=== PATIENT | female | born 1990 | race Caucasian/White ===

== ENCOUNTER 2023-03-30 11:21 | Emergency (ER) | payer OTHER ==
--- NOTE | 2023-03-30 11:28 | ERPHSYRPT ---
- History of Present Illness Time Seen by Provider: 03/30/23 11:28 Source: patient Exam Limitations: no limitations Physician History: This is a 32-year-old right-handed white female who was cutting and trimming her mother's trees for several hours yesterday afternoon and evening. This morning when she woke up she was having significant left Steer neck and left posterior shoulder pain. She felt that it was muscular. She did not suffer any acute traumatic injury or fall. She has no chest pain. She denies shortness of breath. Occurred: this morning Method of Injury: other (Repetitive movement of trimming trees yesterday) Quality: aching Severity of Pain-Max: mild (To moderate) Severity of Pain-Current: mild (To moderate with movement) Extremities Pain Location: shoulder: left (Posterior as well as posterior neck.) Modifying Factors: Improves With: movement Associated Symptoms: neck pain (Posterior neck and posterior shoulder in the distribution of the trapezius muscle) Allergies/Adverse Reactions: No Known Drug Allergies Allergy (Verified 03/30/23 11:46) Travel Risk - International Travel Have you traveled outside of the country in past 3 weeks: No - Coronavirus Screening Are you exhibiting any of the following symptoms?: No Close contact with a COVID-19 positive Pt in past 14-21 Days: No - Review of Systems Constitutional: No Symptoms Eyes: No Symptoms Ears, Nose, & Throat: No Symptoms Respiratory: No Symptoms Cardiac: No Symptoms Abdominal/Gastrointestinal: No Symptoms Genitourinary Symptoms: No Symptoms Musculoskeletal: No Symptoms, Neck Pain (Posterior neck in the distribution of the trapezius muscle), Other (Posterior left shoulder in the distribution of the trapezius muscle) Skin: No Symptoms Neurological: No Symptoms Psychological: No Symptoms Endocrine: No Symptoms Hematologic/Lymphatic: No Symptoms Immunological/Allergic: No Symptoms All Other Systems: Reviewed and Negative - Past Medical History Pertinent Past Medical History: No - Past Surgical History Past Surgical History: No - Nursing Vital Signs Nursing Vital Signs: Initial Vital Signs Temperature 97.0 F 03/30/23 11:42 Pulse Rate 79 03/30/23 11:42 Respiratory Rate 20 03/30/23 11:42 Blood Pressure 110/69 03/30/23 11:42 O2 Sat by Pulse Oximetry 100 03/30/23 11:42 Pain Scale Pain Intensity 2 - Physical Exam General Appearance: no apparent distress, alert, anxiety Eyes, Ears, Nose, Throat Exam: normal ENT inspection, moist mucous membranes Neck Exam: tenderness lateral (Left posterior muscle tenderness in the distribution of the left trapezius muscle) Cardiovascular/Respiratory Exam: chest non-tender, normal breath sounds, regular rate/rhythm, heart sounds normal, no respiratory distress Abdominal Exam: non-tender Back Exam: normal inspection, normal range of motion, No CVA tenderness, No vertebral tenderness Shoulder Exam: normal inspection, no evidence of injury, normal ROM, soft tissue tenderness (Left posterior shoulder in the distribution of the left trapezius muscle) Elbow/Forearm Exam: normal inspection, non-tender, no evidence of injury, normal ROM Wrist Exam: normal inspection, non-tender, no evidence of injury, normal ROM Hand Exam: normal inspection, non-tender, no evidence of injury, normal ROM Neuro/Tendon Exam: normal sensation, normal motor functions, normal tendon functions, responds to pain, no evidence tendon injury Mental Status Exam: alert, oriented x 3, cooperative Skin Exam: normal color, warm, dry SpO2 Interpretation: normal O2 Delivery: Room Air - Course Nursing assessment & vital signs reviewed: Yes - Progress Progress: unchanged Progress Note: 03/30/23 12:15 This patient's medical issue is 1 of low complexity. Level complexity in the work-up performed is based on review of the patient's past medical history, review of the patient's medication list, review of the patient's drug allergy list, history of present illness and physical findings on examination. This patient's work-up does not require laboratory data. Patient refuses x-rays/radiographic studies at this time. I offered her x-rays of the cervical spine and left shoulder. She did not suffer a fall or any acute traumatic injury and therefore refuses x-rays. I also offered her injections of Solu- Medrol and orphenadrine intramuscularly and she refuses that. She does except prescriptions to be sent to her pharmacy for prednisone and orphenadrine orally. Counseled pt/family regarding: diagnosis, need for follow-up Medical Desision Making - Diagnostic Testing Diagnostic test were ordered, analyzed, and reviewed by me: No - Risk of complications The pt has a mod risk of morbidity or mortality based on: Need for prescription drug management - Departure Departure Disposition: Home Clinical Impression: Musculoskeletal pain Condition: Stable Critical Care Time: No Referrals: SUSAN TAYLOR [Primary Care Provider] - Follow up/PCP as directed Additional Instructions: Take your medication as prescribed. May alternate ice and heat for the next 48 hours. Call your primary care provider today, to make arrangements for follow- up appointment and further evaluation and management. Prescriptions: Prednisone 10 mg [Deltasone 10 mg] 10 mg PO TID #12 tablet Orphenadrine Citrate 100 mg [Norflex 100 MG Tablet] 100 mg PO BID #10 tab
[2023-03-30 11:46] VITALS: RESP 20
[2023-03-30 12:29] VITALS: BP 108/72; PULSE 80; TEMP 97.2; O2SAT 98
== END 2023-03-30 12:38 | disposition home or self-care (01) ==
LOC: ED 11:21
DX: M25.512 Pain in left shoulder (principal); M54.2 Cervicalgia; Z79.52 Long term (current) use of systemic steroids
CPT/HCPCS: 99281

== ENCOUNTER 2023-06-17 18:20 | Emergency (ER) | payer OTHER ==
[2023-06-17 18:33] VITALS: TEMP 98.2
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
[2023-06-17 18:47] VITALS: BP 106/76; PULSE 61; RESP 16
[2023-06-17 18:55] VITALS: O2SAT 99
== END 2023-06-17 18:50 | disposition home or self-care (01) ==
LOC: ED 18:20
DX: T21.12XA Burn of first degree of abdominal wall, initial encounter (principal); W86.8XXA Exposure to other electric current, initial encounter; Z33.1 Pregnant state, incidental; R11.0 Nausea; Z28.310 Unvaccinated for COVID-19
CPT/HCPCS: 99281

== ENCOUNTER 2023-07-14 07:57 | Emergency (ER) | payer OTHER ==
--- NOTE | 2023-07-14 08:03 | ERPHSYRPT ---
- History of Present Illness Time Seen by Provider: 07/14/23 08:02 Historian: patient Exam Limitations: no limitations Physician History: This is a 33-year-old white female patient of Dr. Padmini Taylor who presents to the emergency department with complaints of vaginal bleeding and pelvic cramping this morning. Patient states she is approximately 7 to 8 weeks . She has not had an ultrasound yet. 2 days ago and yesterday she had some light brown spotting. She thought that was secondary to sexual intercourse. However, this morning she had significant vaginal bleeding and associated pelvic cramping. Patient has had no prior abdominal surgeries. She has no known drug allergies and she takes no medications chronically. Patient denies shortness of breath. Patient denies chest pain Timing/Duration: day(s) (3), worse Activities at Onset: none Quality: cramping Abdominal Pain Onset Location: suprapubic Pain Radiation: no radiation Severity of Pain-Max: mild (To moderate) Severity of Pain-Current: mild (To moderate) Modifying Factors: Improves With: nothing Associated Symptoms: denies symptoms Previous symptoms: no prior history Allergies/Adverse Reactions: No Known Drug Allergies Allergy (Verified 07/14/23 08:18) Hx Tetanus, Diphtheria Vaccination/Date Given: No Hx Influenza Vaccination/Date Given: No Hx Pneumococcal Vaccination/Date Given: No Travel Risk - Coronavirus Screening Are you exhibiting any of the following symptoms?: No Close contact with a COVID-19 positive Pt in past 14-21 Days: No - Vaccine Status Have you recieved a Covid-19 vaccination: No - Review of Systems Constitutional: No Symptoms Eyes: No Symptoms Ears, Nose, & Throat: No Symptoms Respiratory: No Symptoms Cardiac: No Symptoms Abdominal/Gastrointestinal: Abdominal Pain (Pelvic cramping) Genitourinary Symptoms: Vaginal Bleeding Musculoskeletal: No Symptoms Skin: No Symptoms Neurological: No Symptoms Psychological: No Symptoms Endocrine: No Symptoms Hematologic/Lymphatic: No Symptoms Immunological/Allergic: No Symptoms All Other Systems: Reviewed and Negative - Past Medical History Pertinent Past Medical History: No - Past Surgical History Past Surgical History: No - Social History Smoking Status: Never smoker Exposure to second hand smoke: No Drug Use: none Patient Lives Alone: No - Nursing Vital Signs Nursing Vital Signs: Initial Vital Signs Temperature 97.4 F 07/14/23 08:21 Pulse Rate 91 H 07/14/23 08:21 Respiratory Rate 16 07/14/23 08:21 Blood Pressure 110/69 07/14/23 08:21 O2 Sat by Pulse Oximetry 97 07/14/23 08:21 Pain Scale Pain Intensity 3 - Physical Exam General Appearance: no apparent distress, alert, anxiety Eye Exam: PERRL/EOMI, eyes nml inspection Ears, Nose, Throat Exam: normal ENT inspection, moist mucous membranes Neck Exam: normal inspection, non-tender, supple, full range of motion Respiratory Exam: normal breath sounds, lungs clear, airway intact, No chest tenderness, No respiratory distress Cardiovascular Exam: regular rate/rhythm, normal heart sounds, normal peripheral pulses Gastrointestinal/Abdomen Exam: soft, normal bowel sounds, tenderness (Mild suprapubic tenderness to palpation) Pelvic Exam: not done Rectal Exam: not done Back Exam: normal inspection, normal range of motion, No CVA tenderness, No vertebral tenderness Extremity Exam: normal inspection, normal range of motion, pelvis stable Neurologic Exam: alert, oriented x 3, cooperative, pharmaceutical detailer II-XII nml as tested, normal mood/affect, nml cerebellar function, nml station & gait, sensation nml Skin Exam: normal color, warm, dry Lymphatic Exam: No adenopathy SpO2 Interpretation: normal O2 Delivery: Room Air - Course Nursing assessment & vital signs reviewed: Yes Ordered Tests: Active Orders 24 hr Category Date Time Status IV Insertion STAT Care 07/14/23 08:20 Active OB <14 WKS 1ST GESTATION [US] Stat Exams 07/14/23 08:21 Completed CBC W DIFF Stat Lab 07/14/23 08:30 Completed CMP Stat Lab 07/14/23 08:30 Completed CULTURE,URINE Stat Lab 07/14/23 08:25 Received HCG QUALITATIVE, SERUM Stat Lab 07/14/23 08:30 Completed HCG, Quantitative (Inhouse) Stat Lab 07/14/23 08:30 Completed UA W/RFX UR CULTURE Stat Lab 07/14/23 08:25 Completed Medication Summary Discontinued Medications Generic Name Dose Route Start Last Admin Trade Name Freq PRN Reason Stop Dose Admin Ceftriaxone Sodium/Dextrose 1 g in 50 mls @ 100 mls/hr 07/14/23 09:13 07/14/23 09:31 Rocephin 1 Gm-D5w 50 Ml Bag IV 07/14/23 09:42 100 ml/hr STAT STA 100 mls/hr Administration Ceftriaxone Sodium/Dextrose Confirm 07/14/23 09:26 Rocephin 1 Gm-D5w 50 Ml Bag Administered 07/14/23 09:27 Dose 1 g in 50 mls @ ud IV .STK-MED ONE Lab/Rad Data: Laboratory Result Diagrams 07/14/23 08:30 07/14/23 08:30 Laboratory Results 07/14/23 07/14/23 07/14/23 Range/Units 08:30 08:30 08:30 WBC (4.0-10.5) x10^3/uL RBC (4.1-5.4) x10^6/uL Hgb (12.0-16.0) g/dL Hct (35-47) % MCV (78-100) fL MCH (26-32) pg MCHC (32-36) g/dL RDW (11.5-14.0) % Plt Count (150-450) x10^3/uL MPV (7.5-11.0) fL Gran % (36.0-66.0) % Immature Gran % (Auto) (0.00-0.4) % Nucleat RBC Rel Count (0.00-0.1) % Eos # (Auto) (0-0.5) x10^3/uL Immature Gran # (Auto) (0.00-0.03) x10^3u/L Absolute Lymphs (auto) (1.0-4.6) x10^3/uL Absolute Monos (auto) (0.0-1.3) x10^3/uL Absolute Nucleated RBC (0.00-0.01) x10^3u/L Lymphocytes % (24.0-44.0) % Monocytes % (0.0-12.0) % Eosinophils % (0.00-5.0) % Basophils % (0.0-0.4) % Absolute Granulocytes (1.4-6.9) x10^3/uL Basophils # (0-0.4) x10^3/uL Sodium 139 (137-145) mmol/L Potassium 4.0 (3.5-5.1) mmol/L Chloride 107 (98-107) mmol/L Carbon Dioxide 24 (22-30) mmol/L Anion Gap 12.4 (5-15) MEQ/L BUN 10 (7-17) mg/dL Creatinine 0.61 (0.52-1.04) mg/dL Estimated GFR 121.7 ML/MIN Glucose 96 (74-106) mg/dL Calcium 8.8 (8.4-10.2) mg/dL Total Bilirubin 0.40 (0.2-1.3) mg/dL AST 32 (14-36) U/L ALT 24 (0-35) U/L Alkaline Phosphatase 53 (38-126) U/L Serum Total Protein 7.5 (6.3-8.2) g/dL Albumin 4.3 (3.5-5.0) g/dL Serum HCG, Qual POSITIVE (NEGATIVE) Beta HCG, Quant 47678 mIU/ml Urine Color (Yellow) Urine Appearance (Clear) Urine pH (4.6-8.0) Ur Specific [place] (1.005-1.030) Urine Protein (Negative) Urine Glucose (UA) (Negative) mg/dL Urine Ketones (Negative) Urine Blood (Negative) Urine Nitrite (Negative) Urine Bilirubin (Negative) Urine Urobilinogen (0.2) mg/dL Ur Leukocyte Esterase (Negative) U Hyaline Cast (Auto) (0-2) /LPF Urine Microscopic RBC (0-5) /HPF Urine Microscopic WBC (0-5) /HPF Ur Epithelial Cells (None Seen) /HPF Urine Bacteria (None Seen) /HPF Urine Culture Reflexed (NO) 07/14/23 07/14/23 Range/Units 08:30 08:25 WBC 6.1 (4.0-10.5) x10^3/uL RBC 4.28 (4.1-5.4) x10^6/uL Hgb 12.5 (12.0-16.0) g/dL Hct 38.2 (35-47) % MCV 89.3 (78-100) fL MCH 29.2 (26-32) pg MCHC 32.7 (32-36) g/dL RDW 12.1 (11.5-14.0) % Plt Count 182 (150-450) x10^3/uL MPV 10.2 (7.5-11.0) fL Gran % 69.4 H (36.0-66.0) % Immature Gran % (Auto) 0.2 (0.00-0.4) % Nucleat RBC Rel Count 0.0 (0.00-0.1) % Eos # (Auto) 0.04 (0-0.5) x10^3/uL Immature Gran # (Auto) 0.01 (0.00-0.03) x10^3u/L Absolute Lymphs (auto) 1.09 (1.0-4.6) x10^3/uL Absolute Monos (auto) 0.71 (0.0-1.3) x10^3/uL Absolute Nucleated RBC 0.00 (0.00-0.01) x10^3u/L Lymphocytes % 17.8 L (24.0-44.0) % Monocytes % 11.6 (0.0-12.0) % Eosinophils % 0.7 (0.00-5.0) % Basophils % 0.3 (0.0-0.4) % Absolute Granulocytes 4.24 (1.4-6.9) x10^3/uL Basophils # 0.02 (0-0.4) x10^3/uL Sodium (137-145) mmol/L Potassium (3.5-5.1) mmol/L Chloride (98-107) mmol/L Carbon Dioxide (22-30) mmol/L Anion Gap (5-15) MEQ/L BUN (7-17) mg/dL Creatinine (0.52-1.04) mg/dL Estimated GFR ML/MIN Glucose (74-106) mg/dL Calcium (8.4-10.2) mg/dL Total Bilirubin (0.2-1.3) mg/dL AST (14-36) U/L ALT (0-35) U/L Alkaline Phosphatase (38-126) U/L Serum Total Protein (6.3-8.2) g/dL Albumin (3.5-5.0) g/dL Serum HCG, Qual (NEGATIVE) Beta HCG, Quant mIU/ml Urine Color Red A (Yellow) Urine Appearance Turbid A (Clear) Urine pH 5.0 (4.6-8.0) Ur Specific [place] 1.025 (1.005-1.030) Urine Protein 100 A (Negative) Urine Glucose (UA) Negative (Negative) mg/dL Urine Ketones Negative (Negative) Urine Blood Large A (Negative) Urine Nitrite Positive A (Negative) Urine Bilirubin Moderate A (Negative) Urine Urobilinogen 0.2 (0.2) mg/dL Ur Leukocyte Esterase Moderate A (Negative) U Hyaline Cast (Auto) NONE SEEN (0-2) /LPF Urine Microscopic RBC >100 A (0-5) /HPF Urine Microscopic WBC 6-10 A (0-5) /HPF Ur Epithelial Cells Rare (None Seen) /HPF Urine Bacteria Rare A (None Seen) /HPF Urine Culture Reflexed YES (NO) - Progress Progress: unchanged, pain not gone completely, re-examined Progress Note: 07/14/23 08:33 This patient's medical issue is 1 of moderate complexity. Level of complexity in the workup performed is based on review of the patient's past medical history, review the patient's medication list, review the patient's drug allergy list, history of present illness and physical findings on examination. The workup in this patient includes placement of intravenous line, CBC, CMP, test, quantitative hCG, urinalysis and OB less than 14 weeks ultrasound. 07/14/23 09:50 I reviewed and interpreted the laboratory data results that have returned thus far. Patient has a significant urinary tract infection. She has hematuria present as well. This is likely secondary to vaginal bleeding. We are awaiting the quantitative hCG level. OB ultrasound was interpreted by the radiologist and I reviewed the impression. The impression states negative for intrauterine or ectopic . There is an incidental finding of retroflexed uterus with fibroids and tiny physiologic cul-de-sac fluid. Counseled pt/family regarding: lab results, diagnosis, need for follow-up, rad results Medical Desision Making - Independent Historian Additional History obtained from: Spouse - Diagnostic Testing Diagnostic test were ordered, analyzed, and reviewed by me: Yes Radiological Interpretation: Reviewed by me, Teleradiologist Report - Risk of complications The pt has a mod risk of morbidity or mortality based on: Need for prescription drug management - Departure Departure Disposition: Home Clinical Impression: UTI (urinary tract infection), Vaginal bleeding, Elevated level of quantitative human chorionic gonadotropin (hCG) for gestational age in early Condition: Stable Critical Care Time: No Referrals: SUSAN TAYLOR [Primary Care Provider] - Follow up/PCP as directed Additional Instructions: Drink plenty of fluids. Take your antibiotics as prescribed. Use Tylenol for fever and pain control. Call your primary care provider today, 07/14/2023 to make arranges for follow-up appointment and further evaluation and management including arrangements for repeat quantitative hCG level in the next 3 to 5 d ays. Prescriptions: Cefdinir 300 mg PO BID #14 cap
[2023-07-14 08:25] VITALS: RESP 16; TEMP 97.4
[2023-07-14 08:34] VITALS: BP 109/75; O2SAT 98
[2023-07-14 09:00] LABS: Appearance Turbid (Clear); Bacteria Rare /HPF (None Seen); Bilirubin Moderate (Negative); Blood Large (Negative); Epithelial Cells Rare /HPF (None Seen); Glucose, Urine Negative (Negative); Hyaline Casts NONE SEEN /LPF (0-2); Ketones Negative (Negative); Leukocyte Esterase Moderate (Negative); Nitrite Positive (Negative); Protein,Urine Dip 100 (Negative); RBC >100 /HPF (0-5); Specific Gravity 1.025 (1.005-1.030); Urobilinogen 0.2 mg/dL (0.2)
[2023-07-14 09:06] LABS: ADD URINE CULTURE? YES (NO)
[2023-07-14 09:06] LABS: Absolute Neutrophil Ct (ANC) 4.24 x10^3/uL (1.4-6.9); BASOPHIL % 0.3 % (0.0-0.4); Basophil (Absolute #) 0.02 x10^3/uL (0-0.4); Eosinophil % 0.7 % (0.00-5.0); Eosinophil (Absolute #) 0.04 x10^3/uL (0-0.5); Hematocrit 38.2 % (35-47); Hemoglobin 12.5 g/dL (12.0-16.0); IMMATURE GRAN # 0.01 x10^3u/L (0.00-0.03); IMMATURE GRAN % 0.2 % (0.00-0.4); Lymphocyte (Absolute #) 1.09 x10^3/uL (1.0-4.6); Lymphocytes % 17.8 % (24.0-44.0); Mean Cell Volume 89.3 fL (78-100); Mean Corpuscular Hemoglobin 29.2 pg (26-32); Mean Corpuscular Hgb Concent. 32.7 g/dL (32-36); Mean Platelet Volume 10.2 fL (7.5-11.0); Monocyte (Absolute #) 0.71 x10^3/uL (0.0-1.3); Monocytes % 11.6 % (0.0-12.0); Neutrophil % 69.4 % (36.0-66.0); Platelet Count 182 x10^3/uL (150-450); Red Blood Count 4.28 x10^6/uL (4.1-5.4); Red Cell Distribution Width 12.1 % (11.5-14.0); White Blood Count 6.1 x10^3/uL (4.0-10.5)
[2023-07-14] MEDS ORDERED: ROCEPHIN 1 Gm-D5w 50 ml Bag** 1 G/50 ML IVPB IV STA (09:13)
[2023-07-14] MEDS ORDERED: ROCEPHIN 1 Gm-D5w 50 ml Bag** 1 G/50 ML IVPB IV ONE (09:26)
--- NOTE | 2023-07-14 09:45 | XRAY ---
Indication: Vaginal bleeding. 7 weeks . Two-dimensional transvaginal early OB ultrasound performed. Comparison: None Uterus retroflexed measuring 13.0 x 5.0 x 6.2 cm. Fundus demonstrates 2 subserosal fibroids posteriorly, largest 2.2 cm. No intrauterine gestational sac, pole, or heart tones. Endometrial stripe prominent measuring 12.4 mm. No endometrial cavity mass or fluid collection. Right ovary measures 3.4 x 1.8 x 2.1 cm and left measures 2.2 x 1.4 x 1.2 cm. Normal follicular cysts and perfusion bilaterally. No suspicious adnexal mass. Tiny cul-de-sac fluid presumed physiologic from rupture/leaking cyst. Impression: 1. Negative for intrauterine or ectopic . Correlate with serial beta hCG. 2. Incidental retroflexed uterus with fibroids and tiny physiologic cul-de-sac fluid.
[2023-07-14 09:46] LABS: HCG SERUM TEST POSITIVE (NEGATIVE)
[2023-07-14 09:53] LABS: ALBUMIN 4.3 g/dL (3.5-5.0); ANION GAP 12.4 MEQ/L (5-15); BILIRUBIN,TOTAL 0.4 mg/dL (0.2-1.3); Calcium 8.8 mg/dL (8.4-10.2); Creatinine 1 0.61 mg/dL (0.52-1.04); EST GLOMERULAR FILTRATION RATE 121.7 ML/MIN; Total Protein 7.5 g/dL (6.3-8.2)
[2023-07-14 11:03] VITALS: PULSE 84
== END 2023-07-14 11:07 | disposition home or self-care (01) ==
LOC: ED 07:57
DX: O23.41 Unspecified infection of urinary tract in pregnancy, first trimester (principal); O20.9 Hemorrhage in early pregnancy, unspecified; Z3A.01 Less than 8 weeks gestation of pregnancy; O26.891 Other specified pregnancy related conditions, first trimester; R10.2 Pelvic and perineal pain; Z28.310 Unvaccinated for COVID-19
CPT/HCPCS: 36000; 36415; 76801; 80053; 81001; 84702; 84703; 85025; 87086; 99284; J0696

== ENCOUNTER 2023-11-21 11:55 | Emergency (ER) | payer OTHER ==
[2023-11-21 12:09] VITALS: BP 126/76; PULSE 75; TEMP 97; O2SAT 66
[2023-11-21] MEDS ORDERED: XYLOCAINE 1% HCL 20 ML MDV ONE (12:13)
[2023-11-21] MEDS ORDERED: ZOFRAN ODT 4 MG ONE (12:32)
[2023-11-21] MEDS ORDERED: NORCO 5/325 MG ONE (12:32)
[2023-11-21] MEDS: ZOFRAN ODT 4 MG PO PRN (12:33)
[2023-11-21] MEDS: NORCO 5/325 MG PO ONE (12:33)
--- NOTE | 2023-11-21 12:37 | ERPHSYRPT ---
- History of Present Illness Time Seen by Provider: 11/21/23 12:10 Source: patient Exam Limitations: no limitations Patient Subjective Stated Complaint: pt here for injury to right index finger, she was at work and smashed finger in vault door, co pain to finger Triage Nursing Assessment: pt alert, walked in, resp easy, skin w/d/p, has swelling to right index finger with bruising under nail, has 1/2cm laceration to posterior finger, no bleeding at this time Physician History: Patient is a 33-year-old female who presents with an injury to the right index finger distal phalanx. She was apparently at work and closed her right index finger in a vault door. She has a subungual hematoma and severe pain. Occurred: just prior to arrival Method of Injury: direct blow Quality: aching, throbbing Severity of Pain-Max: severe Severity of Pain-Current: mild Extremities Pain Location: 2nd finger: left Modifying Factors: Improves With: movement, pain medication Associated Symptoms: nausea, vomiting Allergies/Adverse Reactions: No Known Drug Allergies Allergy (Verified 11/21/23 12:01) Hx Tetanus, Diphtheria Vaccination/Date Given: No Hx Influenza Vaccination/Date Given: No Hx Pneumococcal Vaccination/Date Given: No Immunizations Up to Date: Yes Travel Risk - International Travel Have you traveled outside of the country in past 3 weeks: No - Emerging Infectious Disease Are you exhibiting symptoms associated with any current EIDs: No - Review of Systems Constitutional: No Fever, No Chills Eyes: No Symptoms Ears, Nose, & Throat: No Symptoms Respiratory: No Cough, No Dyspnea Cardiac: No Chest Pain, No Edema, No Syncope Abdominal/Gastrointestinal: No Abdominal Pain, No Nausea, No Vomiting, No Diarrhea Genitourinary Symptoms: No Dysuria Musculoskeletal: Injury (Injury crush injury to the distal phalanx of the right index finger. There is a subungual hematoma and there is a superficial laceration over the distal tuft), No Back Pain, No Neck Pain Skin: No Rash Neurological: No Dizziness, No Focal Weakness, No Sensory Changes Psychological: No Symptoms Endocrine: No Symptoms All Other Systems: Reviewed and Negative - Past Medical History Pertinent Past Medical History: No - Past Surgical History Past Surgical History: No - Female History Hx Now: No - Social History Smoking Status: Never smoker Exposure to second hand smoke: No Drug Use: none Patient Lives Alone: No - Nursing Vital Signs Nursing Vital Signs: Initial Vital Signs Temperature 97 F 11/21/23 12:08 Pulse Rate 75 11/21/23 12:08 Respiratory Rate 16 11/21/23 12:08 Blood Pressure 126/76 11/21/23 12:08 O2 Sat by Pulse Oximetry 66 L 11/21/23 12:08 Pain Scale Pain Intensity 7 - Physical Exam General Appearance: moderate distress, alert Eyes, Ears, Nose, Throat Exam: moist mucous membranes Neck Exam: non-tender, supple Cardiovascular/Respiratory Exam: chest non-tender, normal breath sounds, regular rate/rhythm, no respiratory distress Abdominal Exam: non-tender, No guarding Back Exam: normal inspection, No vertebral tenderness Shoulder Exam: normal inspection, non-tender Elbow/Forearm Exam: normal inspection, non-tender Wrist Exam: normal inspection, non-tender Hand Exam: laceration, nail injury (Subungual hematoma of the right index finger soft tissue injury laceration) Neuro/Tendon Exam: normal sensation, normal motor functions Mental Status Exam: alert, oriented x 3, cooperative Skin Exam: normal color, warm, dry SpO2: 66 Procedures - Nail Trephination Time of Procedure: 12:35 Nail Trephination Location: Right index finger nail Method of Drainage: nail cauterized Sterile Dressing Applied: Yes Finger Splint: No - Course Nursing assessment & vital signs reviewed: Yes Ordered Tests: Active Orders 24 hr Category Date Time Status FINGER(S) Stat Exams 11/21/23 12:04 Taken Medication Summary Generic Name Dose Route Start Last Admin Trade Name Freq PRN Reason Stop Dose Admin Ondansetron HCl 4 mg 11/21/23 12:28 Zofran 4 Mg/Udtablet Orally Disintegrating PO 12/21/23 12:27 Q4H PRN PRN NAUSEA/VOMITING Discontinued Medications Generic Name Dose Route Start Last Admin Trade Name Freq PRN Reason Stop Dose Admin Hydrocodone Bitart/Acetaminophen 1 tab 11/21/23 12:27 Hydrocodone/Apap 5/325 1 Tab Tablet PO 11/21/23 12:28 STAT ONE Lidocaine HCl Confirm 11/21/23 12:13 Lidocaine Hcl 1% 20 Ml Mdv 20 Ml Ml Administered 11/21/23 12:14 Dose 5 ml .ROUTE .STK-MED ONE Lab/Rad Data: Interpretation by ED physician finds no obvious fracture or dislocation. - Progress Progress: improved Medical Desision Making - Independent Historian Additional History obtained from: Mother - Diagnostic Testing Radiological Interpretation: Interpreted by me - Risk of complications Low Risk: Low risk of morbidity from additional dx testing or treatment - Departure Departure Disposition: Home Clinical Impression: Crushing injury of right index finger Condition: Stable Critical Care Time: No Referrals: JOSE A SEPLUVEDA SEARCH ENGINEER [Primary Care Provider] - Follow up/PCP as directed Instructions: Crush Injury (DC) Prescriptions: Hydrocodone/Acetaminophen [Hydrocodone-Acetamin 5-325 mg] 1 tab PO Q6HPRN PRN 3 Days #12 tablet MDD 4 PRN Reason: Pain
--- NOTE | 2023-11-21 12:48 | XRAY ---
Indication: Pain. Comparison: None 3 view right 2nd finger obtained. No bony, articular, or soft tissue abnormalities.
[2023-11-21 13:15] VITALS: RESP 18
== END 2023-11-21 13:15 | disposition home or self-care (01) ==
LOC: ED 11:55
DX: S67.190A Crushing injury of right index finger, initial encounter (principal); S61.310A Laceration without foreign body of right index finger with damage to nail, initial encounter; W23.0XXA Caught, crushed, jammed, or pinched between moving objects, initial encounter; Y99.0 Civilian activity done for income or pay; Z79.891 Long term (current) use of opiate analgesic
CPT/HCPCS: 11740; 73140; 99283; Q0162; A9270-GY

== ENCOUNTER 2024-04-17 15:12 | Emergency (ER) | payer BC, OTHER ==
[2024-04-17 15:33] VITALS: BP 118/68; RESP 18; TEMP 98.4; O2SAT 99
--- NOTE | 2024-04-17 15:54 | XRAY ---
Indication: Pain following fall. Posterior head injury. Multiple contiguous axial images obtained through the head without contrast. Comparison: None Normal appearing brain parenchyma, ventricles, and bony calvarium. Visualized paranasal sinuses and mastoid air cells are clear. Impression: Normal CT head without contrast exam.
--- NOTE | 2024-04-17 15:56 | XRAY ---
Indication: Pain following fall. Posterior head injury. Multiple contiguous axial images obtained through the cervical spine. Sagittal and coronal reformatted images obtained. Comparison: None Axial images negative for acute fracture, suspicious bony lesions, or spinal canal stenosis. Minimal broad-based disc osteophyte complex at C5-C6 level. Facets are symmetric. Sagittal and coronal reformatted images demonstrates lordotic stranding, positional versus paraspinal spasm. No acute compression fracture, subluxation, or jumped facet. Normal appearing craniocervical junction. Lung apices clear. Impression: Cervical lordotic straightening and minimal C5-C6 degenerative disc disease. Remaining CT cervical spine is normal.
--- NOTE | 2024-04-17 16:01 | ERPHSYRPT ---
- History of Present Illness Time Seen by Provider: 04/17/24 16:07 Source: patient Exam Limitations: no limitations Patient Subjective Stated Complaint: PT states "I was riding a horse and it fell sideways onto my and my right knee, right elbow between my shoulderblades and my neck hurt." Triage Nursing Assessment: PT presented alert and oriented x 3, skin wpd. Pt ambulates with a limp PT speech is clear equal, pt has not outward injuries noted. Physician History: 34-year-old female presents to our ED for evaluation post fall. Patient states she was on her horse when the horse tripped and fell. Patient fell towards her right side. Patient hit the back of her head and complains of tenderness to the back of her head and neck. Patient also has some bruising to her right leg. However patient declined x-rays of her extremities. Patient states she is ambulatory and does not feel anything is broken. Patient does not feel she needs x-rays but is concerned about her head and her neck. No loss of consciousness. No associated chest pain or shortness of breath. No nausea vomiting or diaphoresis. Symptoms are mild to moderate in intensity. Patient declined pain medication. Significant other at bedside. They voiced no other complaints or concerns at this time. Portions of this note were created with voice recognition technology. There may be grammatical, spelling, punctuation or sound alike errors Timing/Duration: today Severity: moderate Modifying Factors: Improves With: nothing Associated Symptoms: denies symptoms Allergies/Adverse Reactions: No Known Drug Allergies Allergy (Verified 11/21/23 12:01) Hx Tetanus, Diphtheria Vaccination/Date Given: Yes Hx Influenza Vaccination/Date Given: No Hx Pneumococcal Vaccination/Date Given: No Immunizations Up to Date: No Travel Risk - International Travel Have you traveled outside of the country in past 3 weeks: No - Emerging Infectious Disease Are you exhibiting symptoms associated with any current EIDs: No - Review of Systems Constitutional: No Symptoms, No Fever, No Chills Eyes: No Symptoms Ears, Nose, & Throat: No Symptoms Respiratory: No Symptoms, No Cough, No Dyspnea Cardiac: No Symptoms, No Chest Pain, No Edema, No Syncope Abdominal/Gastrointestinal: No Symptoms, No Abdominal Pain, No Nausea, No Vomiting, No Diarrhea Genitourinary Symptoms: No Symptoms, No Dysuria Musculoskeletal: No Symptoms, No Back Pain, No Neck Pain Skin: No Symptoms, No Rash Neurological: No Symptoms, No Dizziness, No Focal Weakness, No Sensory Changes Psychological: No Symptoms Endocrine: No Symptoms Hematologic/Lymphatic: No Symptoms Immunological/Allergic: No Symptoms All Other Systems: Reviewed and Negative - Past Medical History Pertinent Past Medical History: No - Past Surgical History Past Surgical History: No - Female History Hx Last Menstrual Period: 04/04/2024 Hx Now: No - Social History Smoking Status: Never smoker Exposure to second hand smoke: No Drug Use: none Patient Lives Alone: No - Social Determinants of Health Will the patient participate in the screening: Declined to provide - Nursing Vital Signs Nursing Vital Signs: Initial Vital Signs Temperature 98.4 F 04/17/24 15:27 Respiratory Rate 18 04/17/24 15:27 Blood Pressure 118/68 04/17/24 15:27 O2 Sat by Pulse Oximetry 99 04/17/24 15:27 Pain Scale Pain Intensity 4 - Physical Exam General Appearance: no apparent distress, alert Eye Exam: PERRL/EOMI, eyes nml inspection Ears, Nose, Throat Exam: normal ENT inspection, TMs normal, pharynx normal, moist mucous membranes Neck Exam: normal inspection, non-tender, supple, full range of motion Respiratory Exam: normal breath sounds, lungs clear, airway intact, No respiratory distress Cardiovascular Exam: regular rate/rhythm, normal heart sounds, normal peripheral pulses Gastrointestinal/Abdomen Exam: soft, normal bowel sounds, No tenderness, No mass Back Exam: normal inspection, normal range of motion, No CVA tenderness, No vertebral tenderness Extremity Exam: normal inspection, normal range of motion, pelvis stable Neurologic Exam: alert, oriented x 3, cooperative, normal mood/affect, nml cerebellar function, nml station & gait, sensation nml, No motor deficits Skin Exam: normal color, warm, dry, No rash Lymphatic Exam: No adenopathy SpO2 Interpretation: normal SpO2: 99 O2 Delivery: Room Air - Course Nursing assessment & vital signs reviewed: Yes - CT Exams Cervical Spine CT Interpretation: Tele-radiologist Report (C5-C6 degenerative disc disease) Head CT Interpretation: Tele-radiologist Report (No acute intracranial process observed) Ordered Tests: Active Orders 24 hr Category Date Time Status CERVICAL SPINE WO CONTRAST [CT] Stat Exams 04/17/24 15:34 Completed HEAD WITHOUT CONTRAST [CT] Stat Exams 09/17/24 15:25 Completed - Progress Progress: improved Progress Note: 34-year-old female presents to our ED status post fall. Patient states her horse tripped. Patient fell towards her right side along with a horse. Patient has bruising to her right lateral knee. Patient declined x-ray of her right knee. Patient also states she hit her elbow but feels the x-rays are not necessary as she is ambulatory. Patient states she is concerned with her head and neck. Physical exam significant for bruising to the right lateral knee. There is a contusion to the posterior scalp. Cervical collar applied. CT head neck negative for acute pathology. Patient declined pain medication. She requested a work note. Home pain medication provided per patient. It were a prescription for Toradol forwarded to patient's pharmacy. Patient agrees to follow-up with her primary care doctor within 48 hours for reevaluation. Portions of this note were created with voice recognition technology. There may be grammatical, spelling, punctuation or sound alike errors Complexity of problem addressed is moderate acute complicated. No critical care time. Complex of data reviewed and analyzed is moderate. Test ordered test reviewed results analyzed and correlated clinically with history and physical exam. Risk of complication and or risk of morbidity/mortality of patient management is low. Vital stable. Time spent to discharge patient is approximately 10 minutes. Plan of care established for shared decision making. No social determinants of health present to impede follow-up. Portions of this note were created with voice recognition technology. There may be grammatical, spelling, punctuation or sound alike errors 04/17/24 16:10 Counseled pt/family regarding: diagnosis, need for follow-up, rad results - Departure Departure Disposition: Home Clinical Impression: Fall, Cervical sprain Condition: Stable Critical Care Time: No Referrals: JOSE A SEPULVEDA NP [Primary Care Provider] - Follow up/PCP as directed Additional Instructions: Discharge/Care Plan ADILSONBRYCEITALIA was seen on 04/17/24 in the Emergency Room. The patient was counseled regarding Diagnosis,Lab results, Imaging studies, need for follow up and when to return to the Emergency Room. Prescriptions given: Discharge Note I have spoken with the patient and/or caregivers. I have explained the patient's condition, diagnosis and treatment plan based on the information available to me at this time. I have answered the patient's and/or caregiver's questions and addressed any concerns. The patient and/or caregivers have as good understanding of the patient's diagnosis, condition and treatment plan as can be expected at this point. The vital signs have been stable. The patient's condition is stable and appropriate for discharge from the emergency department. The patient will pursue further outpatient evaluation with the primary care physician or other designated or consulting physician as outlined in the discharge instructions. The patient and/or caregivers are agreeable to this plan of care and follow-up instructions have been explained in detail. The patient and/or caregivers have received these instruction. The patient/and or caregivers are aware that any significant change in condition or worsening of symptoms should prompt an immediate return to this or the closest emergency department or call 911. Forms: Work/School Release Form Prescriptions: Ketorolac Trometh 10 mg Tab [TORAdol 10 MG TABLET] 10 mg PO TID 5 Days #15 tablet
== END 2024-04-17 16:21 | disposition home or self-care (01) ==
LOC: ED 15:12
DX: S00.03XA Contusion of scalp, initial encounter (principal); S13.4XXA Sprain of ligaments of cervical spine, initial encounter; M25.561 Pain in right knee; M25.521 Pain in right elbow; M25.511 Pain in right shoulder; W19.XXXA Unspecified fall, initial encounter
CPT/HCPCS: 70450; 72125; 99283